=== PATIENT | male | born 1970 | race Caucasian/White ===

== ENCOUNTER 2017-12-30 11:00 | Emergency (ER) | payer MEDICAID ==
[~2017-12-30] VITALS: Ht 180.3 cm; Wt 100.0 kg
[~2017-12-30 11:00] MED LIST: NO HOME MEDS
[2017-12-30] MEDS ORDERED: CefTRIAXone 250MG inj IM ONE (11:20)
[2017-12-30] MEDS ORDERED: azithromycin 250mg tablet PO ONE (11:20)
[2017-12-30] MEDS ORDERED: CefTRIAXone 250MG IM Kit w/LIDOcaine IM ONE (11:30)
[2017-12-30 14:18] VITALS: BP 159/97
== END 2017-12-30 14:20 | disposition home or self-care (01) ==
LOC: ER 11:00
DX: A60.00 Herpesviral infection of urogenital system, unspecified (principal); F12.10 Cannabis abuse, uncomplicated
CPT/HCPCS: 96372; 99283; J0696

== ENCOUNTER 2019-08-29 09:44 | Emergency (ER) | payer MEDICAID ==
[~2019-08-29] VITALS: Ht 182.9 cm; Wt 126.0 kg
[2019-08-29] MEDS ORDERED: RISP0.257 PO (11:14)
[2019-08-29] MEDS ORDERED: PRAZ5CAP PO (11:14)
[2019-08-29 13:06] VITALS: BP 159/113
[2019-09-02 12:03] LABS: OCCULT BLOOD STOOL NEGATIVE (Neg)
== END 2019-08-29 13:08 | disposition home or self-care (01) ==
LOC: ER 09:45
DX: N43.3 Hydrocele, unspecified (principal); R10.31 Right lower quadrant pain; F12.90 Cannabis use, unspecified, uncomplicated; F17.200 Nicotine dependence, unspecified, uncomplicated; Z98.890 Other specified postprocedural states
CPT/HCPCS: 76870; 82272; 99284